=== PATIENT | female | born 1935 | race Caucasian/White ===

== ENCOUNTER 2019-03-30 02:00 | Emergency (ER) | payer MEDICARE, BC ==
[2019-03-30] MEDS ORDERED: Acetaminophen/HYDROcodone 325-5 MG Tab PO PRN (03:45)
--- NOTE | 2019-03-30 03:54 | EDM.PDOC ---
<King Sanon - Last Filed: 03/30/19 08:35> ED HPI GENERAL MEDICAL PROBLEM - General Chief Complaint: Lower Extremity Injury/Pain Stated Complaint: leg and arm pain from fall Time Seen by Provider: 03/30/19 02:15 Source of Information: Reports: Patient, Family (daughter) History Limitations: Reports: No Limitations - History of Present Illness INITIAL COMMENTS - FREE TEXT/NARRATIVE: Opal is an 83 yo female who is brought into the ED via private vehicle, accompanied by her daughter, with complaints of right hip pain. Daughter states they were driving back from [place] and were in [place] this evening. They had stopped at a [employer] and on their way out of the restaurant her walker got caught on the door and she ended up tripping, falling onto her right hip. Her daughter states she was able to get up with assistance and walk to the vehicle. She states she didn't complain about her hip unless she would hit a bump. States they had stopped by a local store and were able to get some bandages for skin tears that had happened during the fall. States she has a skin tear to her right knee, right forearm and left elbow. They decline any head involvement, loss of consciousness. Location: Reports: Pelvis, Lower Extremity, Right Right Leg Pain Score (Numeric/FACES): 10 - Related Data Allergies Allergy/AdvReac Type Severity Reaction Status Date / Time No Known Allergies Allergy Verified 03/30/19 02:01 Home Meds: Home Meds Aspirin [Halfprin] 81 mg PO BEDTIME 03/30/19 [History] Furosemide [Lasix] 20 mg PO DAILY PRN 03/30/19 [History] Lactobacillus Acidophilus [Probiotic] 1 cap PO BID 03/30/19 [History] Mesalamine [Mesalamine Dr] 800 mg PO BID 03/30/19 [History] Mirtazapine 15 mg PO BEDTIME 03/30/19 [History] Potassium Chloride [Klor-Con 10] 10 mg PO DAILY PRN 03/30/19 [History] Vitamin B Complex with C [Super B With Vitamin C] 1 tab PO DAILY 03/30/19 [ History] Past Medical History HEENT History: Reports: Cataract Cardiovascular History: Reports: Arrhythmia, Blood Clots/VTE/DVT, DE Respiratory History: Reports: PE, Other (See Below) Other Respiratory History: recent respiratory failure while in hospital Gastrointestinal History: Reports: Hemorrhoids, Irritable Bowel Syndrome, Other (See Below) Other Gastrointestinal History: ulcertive colitis Genitourinary History: Reports: Acute Renal Failure BRIM PRESSER History: Reports: Musculoskeletal History: Reports: Arthritis, Fracture Psychiatric History: Reports: Depression Hematologic History: Reports: Blood Transfusion(s) Dermatologic History: Reports: Other (See Below) Other Dermatologic History: recent pressure ulcers from being in hospital ICU - Infectious Disease History Infectious Disease History: Reports: VRE - Past Surgical History HEENT Surgical History: Reports: Cataract Surgery Cardiovascular Surgical History: Reports: Other (See Below) Other Cardiovascular Surgeries/Procedures: IVC filter Respiratory Surgical History: Reports: Thoracentesis GI Surgical History: Reports: Cholecystectomy, Colonoscopy, EGD, Other (See Below) Other GI Surgeries/Procedures: removed cyst off pancreas Female Surgical History: Reports: None Musculoskeletal Surgical History: Reports: ORIF Dermatological Surgical History: Reports: None Social & Family History - Family History Family Medical History: Noncontributory - Tobacco Use Smoking Status *Q: Never Smoker - Caffeine Use Caffeine Use: Reports: None - Recreational Drug Use Recreational Drug Use: No Review of Systems - Review of Systems Review Of Systems: See Below Constitutional: Reports: Chills Eyes: Reports: No Symptoms Ears: Reports: No Symptoms Nose: Reports: No Symptoms Mouth/Throat: Reports: No Symptoms Respiratory: Reports: No Symptoms Cardiovascular: Reports: No Symptoms GI/Abdominal: Reports: No Symptoms Musculoskeletal: Reports: Arm Pain (from skin tears), Leg Pain (right leg/pelvis ). Denies: Neck Pain, Shoulder Pain, Back Pain Neurological: Reports: No Symptoms. Denies: Dizziness, Syncope Psychiatric: Reports: No Symptoms ED EXAM, GENERAL - Physical Exam Exam: See Below Exam Limited By: No Limitations General Appearance: Alert, Mild Distress, Thin, Other (GCS 15 during entire time in ED. ) Eye Exam: Bilateral Eye: EOMI, PERRL Ears: Normal External Exam, Normal Canal, Normal TMs, Hearing Loss Nose: Normal Inspection, Normal Mucosa, No Blood Throat/Mouth: Normal Inspection, Normal Oropharynx, Normal Voice, No Airway Compromise Head: Atraumatic, Normocephalic Neck: Normal Inspection, Supple, Full Range of Motion. No: Tender Lateral, Tender Midline Respiratory/Chest: No Respiratory Distress, Lungs Clear, Normal Breath Sounds, No Accessory Muscle Use, Chest Non-Tender Cardiovascular: Regular Rate, Rhythm, No Murmur Peripheral Pulses: 2+: Femoral (R), Posterior Tibial (L), Posterior Tibial (R), Dorsalis Pedis (L), Dorsalis Pedis (R) GI/Abdominal: Normal Bowel Sounds, Soft, Non-Tender, No Distention, Pelvis Stable Extremities: Normal Capillary Refill, Pedal Edema (trace right ankle), Leg Pain (tenderness to right proximal femur/pelvis. ), Limited Range of Motion (right hip) Neurological: Alert, Oriented, Normal Cognition, No Motor/Sensory Deficits Psychiatric: Normal Affect, Normal Mood Skin Exam: Ecchymosis (bilateral forearms and right knee. ), Wound/Incision ( Superficial abrasion to left knee, superficial skin tears to left forearm ) Course - Vital Signs Last Recorded V/S: Last Vital Signs Temp 98.2 F 03/30/19 02:05 Pulse 66 03/30/19 03:07 Resp 16 03/30/19 02:05 BP 87/43 L 03/30/19 06:12 Pulse Ox 100 03/30/19 02:05 - Orders/Labs/Meds Orders: Active Orders 24 hr Category Date Time Status Femur Min 2V Rt [CR] Stat Exams 03/30/19 02:32 Taken Pelvis 1V or 2V [CR] Stat Exams 03/30/19 02:32 Taken Acetaminophen/HYDROcodone [Gibbs 325-5 MG] Med 03/30/19 03:45 Active 1 tab PO Q4H PRN Medication Orders Hydrocodone Bitart/Acetaminophen (Gibbs 325-5 Mg) 1 tab PO Q4H PRN PRN Reason: Pain Last Admin: 03/30/19 04:03 Dose: 1 tab Meds: Medications Generic Name Dose Route Start Last Admin Trade Name Freq PRN Reason Stop Dose Admin Hydrocodone Bitart/Acetaminophen 1 tab 03/30/19 03:45 03/30/19 04:03 Gibbs 325-5 Mg PO 1 tab Q4H PRN Administration Pain - Re-Assessments/Exams Free Text/Narrative Re-Assessment/Exam: X-ray of pelvis did show a nondisplaced superior and inferior rami fractures. X- ray of right femur appeared negative. I did discuss into detail with Opal and her daughter that I advise she go in the hospital for pain control, 2 person assistance, and physical therapy. I discussed the aspect of limiting weight bearing and 2 person assists with transfer from bed to bedside commode. Opal did not want to stay in the hospital as she does have a memorial for her late this weekend and extended family are arriving tomorrow. I discussed that I did feel it was appropriate that she will be able to attend her late 's memorial. I am concerned with further assistance, which I did discuss with her daughter into detail. I do not feel she will be able to fully bear weight for at least a month. I discussed the aspect of insufficient bone with her age and extended length of time needed for complete healing. Daughter did agree with keeping her extended ER tonight, which we will try to get her pain well controlled. She will discuss with her brother what their wishes are as they both have power of deputy county attorney for Opal. Skin tears were cleaned and Tegaderm's were applied. Daughter did admit that Opal has spent September thru February in the hospital in [place]. States she was diagnosed with ulcerative colitis and ended up having a G-tube placed. She had a PE back in 2014 however wouldn't take anticoagulation and in November while she was in the hospital they did place an IVC filter. Since she has been in the hospital so much lately her daughter is really hesitant to keep her in the hospital now. She is considering taking Opal back to [place] with her. She would like to discuss with her brother, Juwan, and will let us know in the morning. Free Text/Narrative Re-Assessment/Exam: 03/30/19 09:02 Opal appears to be doing okay this morning. She continues to be hypotensive, which family has stated is her current norm. I was able to reach Juwan via phone and discussed Opal's care. He would like to discuss with his sister Jaci and they plan on coming into the hospital this morning. They are debating whether to take her home today. I did discuss observation admission and would look at making sure she is able to make it to the [facility] service on Wednesday. Again, I do advise against discharging home at this time. I would like to see Opal admitted for pain control and assistance, as stated prior. Departure - Departure Disposition: Home, Self-Care 01 Clinical Impression: Closed fracture of right inferior pubic ramus Qualifiers: Encounter type: initial encounter Qualified Code(s): S32.591A - Other specified fracture of right pubis, initial encounter for closed fracture - Discharge Information *PRESCRIPTION DRUG MONITORING PROGRAM REVIEWED*: No *COPY OF PRESCRIPTION DRUG MONITORING REPORT IN PATIENT MAGGIE: No Referrals: PCP,None [Primary Care Provider] - Forms: ED Department Discharge Additional Instructions: 1) Gibbs 5/325 - 1 tablet every 4-6 hours as needed for pain 2) May alternate with Tylenol, advise 3000mg of Tylenol in 24hrs total... Remember there is 325mg of Tylenol in each Gibbs tablet. 3) Advise non-weightbearing with use of wheelchair initially. Typically will gradually increase to weight bearing by toe touch dependent on pain level 4) Recommend bedside commode with 2 person assistance. 5) Concerns with increased fall risk as unable to bear weight. 6) Follow up with primary care provider in one week for xrays or sooner if needed 7) Return to hospital for direct admission if unable to manage at home with assistance and pain control - Problem List & Annotations (1) Closed fracture of right inferior pubic ramus SNOMED Code(s): 595982046 Code(s): S32.591A - OTH FRACTURE OF RIGHT PUBIS, INIT ENCNTR FOR CLOSED FRACTURE Status: Acute Current Visit: Yes Qualifiers: Encounter type: initial encounter Qualified Code(s): S32.591A - Other specified fracture of right pubis, initial encounter for closed fracture - Assessment/Plan Plan: See course for details. I did consult with Crystal Malik PA-C as both Opal's children are not here this morning. I did speak to them over the phone and they will be coming in sometime this morning. Again, if Opal is willing to stay we will admit admission. Crystal Malik will resume care at this time. I wrote a hard script for Gibbs #30 if patient/family decide to discharge her this morning. <Eileen Malik - Last Filed: 03/30/19 13:00> Course - Re-Assessments/Exams Free Text/Narrative Re-Assessment/Exam: 03/30/19 1030 Family here. Patient has been resting comfortably. They do feel that with the walker and wheelchair, they are able to care for her at home. Has multiple family members here to assist her and she wants to be a part of the preparation and memorial for her late . Has tolerated pain meds this am. Advised she may weight bear minimally and to pain tolerance. Should have follow up xrays with PCP in one week to verify stability of fracture. Return if find that unable to care for her or needs more assistance. Daughter verbalizes understanding. Departure - Departure Time of Disposition: 10:39
== END 2019-03-30 11:30 | disposition home or self-care (01) ==
LOC: CC.ED 02:00
DX: S32.591A Other specified fracture of right pubis, initial encounter for closed fracture (principal); I25.2 Old myocardial infarction; F32.9 Major depressive disorder, single episode, unspecified; Z79.82 Long term (current) use of aspirin; Z79.899 Other long term (current) drug therapy; W01.0XXA Fall on same level from slipping, tripping and stumbling without subsequent striking against object, initial encounter
CPT/HCPCS: 72170; 73552; 99284; A9270